=== PATIENT | female | born 1965 | race Caucasian/White ===

== ENCOUNTER 2016-09-18 21:02 | Emergency (ER) | payer OTHER ==
--- NOTE | ~2016-09-18 | CT4 ---
[facility] A Service of [facility] / [facility] RADIOLOGY TEXT RESULTS PATIENT: CARLOS PACHECO LOCATION: [facility] : 61 UNIT #: [id number] AGE: [address]: Vinay Sharif MD SEX: F ORDER DR: [id number] [facility] [place], [place] [address] [id number] E MR#: [id number] Acc #: [id number] NAME: CARLOS PACHECO : 1965 SEX: F STUDY DATE/TIME: 09/18/2016 22:32 UNIT: LOBO ROOM: STUDY DESCRIPTION: CT Abd and Pelv Wo Cont Attending Physician: Vinay Sharif M.D. Ordering Physician: Vinay Sharif M.D. Primary Care Physician: Nathaniel Krueger M.D. MEDICAL IMAGING REPORT This report is preliminary unless electronic signature is present EXAM CT scan of the abdomen and pelvis without contrast. DATE OF EXAM 09/18/2016 HISTORY Generalized abdominal pain with nausea and vomiting beginning today. TECHNIQUE Spiral CT was performed through the abdomen and pelvis following oral contrast administration only as per clinician request. NOTE: This CT exam was performed with one or more of the following radiation dose reduction techniques: automatic exposure control, adjustment of mA and/or kV according to patient size, and iterative reconstruction. FINDINGS ABDOMEN: The exam is limited by the lack of intravenous contrast. There is fatty infiltration of the liver. The spleen is enlarged measuring 13.5 cm in greatest diameter. The pancreas, adrenal glands and kidneys are normal. The gallbladder is surgically absent. PELVIS FINDINGS: The gut, mesenteric and alejandra structures are normal. There is no free fluid in the abdomen or pelvis. The lung bases are normal. IMPRESSION 1. Exam is limited by the lack of intravenous contrast. 2. Mild fatty infiltration of the liver. 3. Splenomegaly. 4. Surgical absence of the gallbladder. Dictated by... [facility] A Service of [facility] RADIOLOGY TEXT RESULTS PATIENT: CARLOS PACHECO LOCATION: [facility] : 61 UNIT #: [id number] AGE: [address]: Vinay Sharif MD SEX: F ORDER DR: Ramiro Curtis M.D. THIS IS AN ELECTRONICALLY VERIFIED REPORT Ramiro Curtis M.D. at 09/20/2016 2:19 PM JUAN/tomy TD: 09/19/2016 17:52 JOB #: [id number] MEDICAL IMAGING REPORT COPY
[2016-09-18 20:14] LABS: URINE SOURCE CLEAN CATCH
[2016-09-18 20:18] LABS: BASOPHIL% 0.7 % (0-2.5); EOSINOPHIL# 0.1 X10e3 (0-0.7); EOSINOPHIL% 2.1 % (0.0-7.0); HEMATOCRIT 32.4 % (35.0-45.0); HEMOGLOBIN 11.2 gm/dL (12.0-16.0); LYMPHOCYTE# 1.8 X10e3 (1.0-3.5); LYMPHOCYTE% 27.4 % (17.0-45.0); MEAN CELL VOLUME 83.8 FL (83-96); MEAN CORPUSCULAR HGB CONC 34.6 g/dL (30-36); MEAN PLATELET VOLUME 7.5 FL (6.5-11.5); MONOCYTE# 0.4 X10e3 (0-1.0); MONOCYTE% 6.1 % (3.0-12.0); NEUTROPHIL# 4.1 X10e3 (1.5-7.1); NEUTROPHIL% 63.7 % (40-75); PLATELET COUNT 192 X10e3 (140-420); RED BLOOD COUNT 3.87 X10e (3.90-5.30); RED CELL DISTRIBUTION WIDTH 14.2 % (11.0-15.5); WHITE BLOOD COUNT 6.4 X10e3 (4.0-10.5)
[2016-09-18 20:19] LABS: DIFF IND NO
[2016-09-18 20:22] LABS: URINE APPEARANCE CLEAR; URINE BILIRUBIN NEG (NEG); URINE BLOOD NEG (NEG); URINE COLOR YELLOW; URINE GLUCOSE >1000 MG/DL (NEG); URINE KETONE NEG (NEG); URINE LEUKOCYTE ESTERASE NEG (NEG); URINE NITRATE NEG (NEG); URINE PH 5.5 (5-8); URINE PROTEIN NEG (NEG); URINE SPECIFIC GRAVITY 1.016 (1.003-1.035); URINE UROBILINOGEN 0.2 MG/DL (NEG)
[2016-09-18 20:37] LABS: CULTURE INDICATED? NO
[2016-09-18 20:48] LABS: ALBUMIN SERUM 3.8 g/dL (3.5-5.0); ALKALINE PHOSPHATASE 65 U/L (32-92); ALT (SGPT) 21 U/L (10-40); AST (SGOT) 21 U/L (10-42); BILIRUBIN, DIRECT <0.1 mg/dL (0.0-0.2); BILIRUBIN,INDIRECT 0.5 mg/dL (0.0-0.9); BILIRUBIN,TOTAL 0.6 mg/dL (0.2-2.0); BLOOD UREA NITROGEN 48 mg/dL (9-23); BUN/CREATININE RATIO 26.66; CALCIUM SERUM 8.4 mg/dL (8.4-10.2); CARBON DIOXIDE 24 mmol/L (22-31); CHLORIDE 96 mmol/L (100-111); CREATININE SERUM 1.8 mg/dL (0.6-1.4); GLOM FILT RATE Estimated 31.3 mL/min (>60); GLUCOSE FASTING 374 mg/dL (70-110); LIPASE 67 U/L (22-51); POTASSIUM 4.3 mmol/L (3.5-5.1); PROTEIN TOTAL SERUM 7.4 g/dL (6.0-8.3); SODIUM 130 mmol/L (135-145)
[~2016-09-18 21:02] MED LIST: ACETAMINOPHEN PO; ACTOS PO; AGGRENOX1 CAP PO; AMARYL; AMARYL PO; AMITRYPTYLINE PO; ANOTHER BP MED; ANTIVERT; ANTIVERT PO; ASPIRIN ENTERI325 M1 DOB; ASPIRIN PO; ASPIRIN81 M1 PO; ATORVASTATIN CA80 MG PO; AUGMENTIN PO; AUGMENTIN875 M1 PO; AVANDIA; AVANDIA PO; BACLOFEN20 M1 PO; BACLOFEN20 MG PO; BACTRIM DS TABL1 TAB PO; BAYER ASPIRIN325 M1 PO; BENTYL20 M1 PO; BENTYL20 MG DOB; BLOOD PRESSURE PILL; BUSPAR15 M1 PO; BUSPAR15 MG PO; BUSPAR30 MG PO; BUSPIRONE HCL10 MG PO; BUSPIRONE HCL7.5 MG PO; CALCIUM 500 +1 EAC2 PO; CALCIUM 500 MG1 TAB PO; CELEXA PO; CITALOPRAM HBR40 MG PO; CLEOCIN PO; DEXILANT30 MG PO; DEXILANT60 MG PO; DICYCLOMINE HCL20 MG PO; DUONEB 2.5-0.5 M3 ML NEB; FAMOTIDINE PO; FENOFIBRATE160 MG PO; FIORINAL CAPSUL1 CAP PO; FLEXERIL PO; FORADIL12 MCG NEB; FORTAMET; FORTAMET PO; GABAPENTIN600 MG PO; GLUCOPHAGE XR500 MG PO; HUMALOG MIX 75/10 ML; HUMALOG MIX 75/10 ML SUBQ; HUMALOG100 U/ML SUBQ; HUMULIN R100 U/ML SUBQ; HYDRALAZINE HCL25 MG PO; HYDROCHLOROTHIA25 MG PO; IBUPROFEN PO; IBUPROFEN200 M1 PO; IMDUR PO; INDOCIN SR75 MG PO; INDOMETHACIN PO; INDOMETHACIN75 MG; JANUVIA PO; JANUVIA100 MG PO; K-DUR10 MEQ PO; KCL PO; KEFLEX250 M1 PO; KEPPRA500 M2 PO; LANTUS SOLOSTAR3 ML; LANTUS SOLOSTAR3 ML SUBQ; LANTUS100 U/ML SUBQ; LASIX PO; LASIX20 MG PO; LEVEMIR100 U/ML SQ; LIBRAX CAPSULE1 CA1 PO; LIDODERM30 EA TOP; LIPITOR80 MG PO; LISINOPRIL; LISINOPRIL PO; LOFIBRA54 MG PO; LOPID600 MG; LOPRESSOR PO; LORTAB 5/500 TA1 TA2 PO; MACROBID 100 M100 MG PO; MACROBID100 M1 PO; MECLIZINE HCL12.5 M2 PO; MEDROL DOSEPAK4 MG PO; METFORMIN PO; METHADONE HCL10 MG PO; METHADONE PO; METHADOSE10 MG; METHADOSE10 MG PO; METHAMPHETAMINE PO; METOPROLOL TART25 MG PO; MICRO-K PO; NEURONTIN; NEURONTIN PO; NEURONTIN600 MG DOB; NEURONTIN800 MG PO; NEXIUM40 MG/PACK PO; NITROFURANTOIN100 M3 PO; NITROGLYGERIN0.4 MG SL; NITROGYLCERIN; NITROGYLCERIN SUBLINGUAL; NORCO 7.5/325 T1 TAB PO; NORFLEX100 M1 PO; NORVASC PO; NOVOLOG100 U/ML SUBQ; PAIN RELIEF325 MG PO; PHENERGAN; PHENERGAN PO; PHENERGAN25 M1 PO; PHENERGAN25 MG PO; PHYSCIAN; PHYSICIAN; PLAVIX; PLAVIX PO; POTASSIUM CHLO10 ME1 PO; PRINIVIL5 MG PO; PROTONIX PO; REGLAN PO; SYNTHROID PO; TESSALON PERLE100 M1 PO; TOPROL XL PO; TRAZODONE; TRAZODONE PO; TRIGLIDE160 M1 PO; ULTRAM PO; VASOLEX OINTMEN30 GM TOP; VITAL-D RX TABL1 TAB PO; VOLTAREN100 GM TP; XANAX1 MG PO; Z-PAK PO; ZANAFLEX PO; ZESTRIL10 M1 PO; ZESTRIL5 MG PO; ZITHROMAX PO; ZOCOR PO; ZOFRAN ODT4 MG PO; ZOFRAN PO; ZYRTEC10 M2 PO; [UNRECOGNIZED DRUG - REMARK]
== END 2016-09-19 00:16 | disposition home or self-care (01) ==
LOC: CED 21:02
PROVIDERS: Student in an Organized Health Care Education/Training Program
DX: R10.9 Unspecified abdominal pain (principal); R11.10 Vomiting, unspecified; E11.65 Type 2 diabetes mellitus with hyperglycemia; I10 Essential (primary) hypertension; Z79.899 Other long term (current) drug therapy; Z91.040 Latex allergy status; Z88.8 Allergy status to other drugs, medicaments and biological substances
CPT/HCPCS: 36415; 74176; 80048; 80076; 81003; 83690; 85025; 96361; 96374; 96375; 99284; J2270; J2765

== ENCOUNTER 2017-02-01 16:54 | Emergency (ER) | payer OTHER ==
--- NOTE | ~2017-02-01 | CR126 ---
[facility] A Service of [facility] RADIOLOGY TEXT RESULTS PATIENT: CARLOS PACHECO LOCATION: SED : 61 UNIT #: [id number] AGE: [address]: ORTIZ MCKEON SEX: F ORDER DR: [id number] E MR#: [id number] Acc #: [id number] NAME: CARLOS PACHECO : 1965 SEX: F STUDY DATE/TIME: 02/01/2017 UNIT: SED ROOM: STUDY DESCRIPTION: CR Foot Complete Min 3 View Lt Attending Physician: Ortiz Mckeon Ordering Physician: Ortiz Mckeon Primary Care Physician: Nathaniel Krueger M.D. MEDICAL IMAGING REPORT This report is preliminary unless electronic signature is present. EXAM Left foot 3 views 02/01/2017 19:18 hours HISTORY Patient fell at home 8 days ago. Pain across top of foot since fall. COMPARISON Left foot films 12/27/2011 FINDINGS AP, lateral and oblique views demonstrate normal bone density. There is no fracture, dislocation or periosteal reaction. There is a large plantar calcaneal spur similar to 2011. IMPRESSION No acute fracture or dislocation. Large plantar calcaneal spurs similar to 12/27/2011. Dictated by... Arline Paula M.D. THIS IS AN ELECTRONICALLY VERIFIED REPORT Arline Paula M.D. at 02/02/2017 2:35 PM SMM/juan TD: 02/02/2017 10:18 JOB #: [id number] MEDICAL IMAGING REPORT Page 1 of 1
--- NOTE | ~2017-02-01 | CR142 ---
[facility]. [facility] A Service of [facility] & [facility] RADIOLOGY TEXT RESULTS PATIENT: CARLOS PACHECO LOCATION: SED : 61 UNIT #: [id number] AGE: [address]: ORTIZ MCKEON SEX: F ORDER DR: [id number] [id number] E MR#: [id number] Acc #: [id number] NAME: CARLOS PACHECO : 1965 SEX: F STUDY DATE/TIME: 02/01/2017 19:18 UNIT: SED ROOM: STUDY DESCRIPTION: CR Hand Min 3 Views Rt Attending Physician: Ortiz Mckeon Ordering Physician: Ortiz Mckeon Primary Care Physician: Nathaniel Krueger M.D. MEDICAL IMAGING REPORT This report is preliminary unless electronic signature is present. EXAM Right hand 3 views, 02/01/2017 19:18 hours HISTORY 51-year-old woman who fell at home 8 days ago. Pain in the hand and thumb. COMPARISON Right forearm film, 07/14/2010 FINDINGS AP, lateral and oblique views demonstrate no definite fracture. There is no dislocation. There is mild spurring at the first carpometacarpal joint. IMPRESSION Mild degenerative change. There is no fracture or dislocation. Dictated by... Arline Paula M.D. THIS IS AN ELECTRONICALLY VERIFIED REPORT Arline Paula M.D. at 02/02/2017 2:35 PM ANDRES/teresa TD: 02/02/2017 10:17 JOB #: [id number] MEDICAL IMAGING REPORT Page 1 of 1
== END 2017-02-01 20:28 | disposition home or self-care (01) ==
LOC: SED 16:54
DX: S60.221A Contusion of right hand, initial encounter (principal); M19.041 Primary osteoarthritis, right hand; E11.9 Type 2 diabetes mellitus without complications; I10 Essential (primary) hypertension; J44.9 Chronic obstructive pulmonary disease, unspecified; K21.9 Gastro-esophageal reflux disease without esophagitis; W18.30XA Fall on same level, unspecified, initial encounter; Y92.009 Unspecified place in unspecified non-institutional (private) residence as the place of occurrence of the external cause
CPT/HCPCS: 29280; 73130; 73630; 99283